=== PATIENT | female | born 1970 | race Caucasian/White ===

== ENCOUNTER 2023-11-18 10:03 | Observation (INO) | payer OTHER, SELFPAY ==
[2023-11-18] VITALS (7 sets, daily range): BP systolic 128–178; BP diastolic 62–75; PULSE 76–82; RESP 14–18; TEMP 36.4–36.8; O2SAT 96–100; BMI 46.0
--- NOTE | ~2023-11-18 | MR_ITS ---
EXAMINATION: MR brain/brain stem wo/w con DATE: 11/19/2023 13:55 INDICATION: Stroke TECHNIQUE: Magnetic resonance imaging (MRI) of the brain and brainstem was performed without and with 20 mL Multihance intravenous contrast. Sequences included sagittal and axial T1-weighted SE, axial d iffusion-weighted FS SE, axial 3D SWAN, axial T2-weighted FLAIR, and axial T2-weighted FSE. Postcontr ast axial and coronal T1-weighted SE was obtained. Apparent diffusion coefficient (ADC) maps were cre ated. COMPARISON: None. FINDINGS: There are no areas of restricted diffusion to suggest acute infarction. No intracranial hemorrhage or abnormal intracranial mass lesion. There are scattered areas of nonspecific increased T2-weighted si gnal intensity in the cerebral white matter, predominantly involving the deep, periventricular and po ntine white matter. There are no intraparenchymal signal abnormalities seen on the other pulse sequen connie. The ventricles are symmetric and normal in size. There are no abnormal extra-axial fluid collect ions. Flow voids are seen in the cerebral arteries on the T2-weighted sequences consistent with their expected patency. Visualized orbits and soft tissues are unremarkable. There are no areas of abnorma l enhancement on the post contrast images. IMPRESSION: 1. No acute intracranial process. 2. Mild scattered calcific cerebral and pontine white matter T2 hyperintensity which is within normal limits for age and likely sequela of chronic small vessel ischemic disease. Reviewed, dictated and finalized at location A. IMPRESSION: 1. No acute intracranial process. 2. Mild scattered calcific cerebral and pontine white matter T2 hyperintensity which is within normal limits for age and likely sequela of chronic small vesse l ischemic disease.
--- NOTE | ~2023-11-18 | CT_ITS ---
EXAMINATION: CTA BRAIN/CAROTID DATE: 11/18/2023 11:31 INDICATION: Stroke with left-sided deficits including weakness to the left arm and leg TECHNIQUE: Computed tomographic angiography (CTA) of the head and neck was performed with 100 mL Omni paque-350 intravenous contrast. Multiplanar reconstructions and maximum intensity projection 3D-recon structions of the carotid arteries and of the intracranial arteries were created by the technologist on a separate workstation. Precontrast CT of the head was also obtained. Automated exposure control and iterative reconstruction technique were employed.The dose-length product was 1550.04 mGy-cm. COMPARISON: None. FINDINGS: Carotid arteries: Aortic arch is normal in caliber with no evident plaque or dissection. There is a small amount of ath erosclerotic plaque with 0% stenosis of the right carotid bulb relative to normal distal artery lumen diameter (NASCET criteria). There is 25% stenosis of the left carotid bulb relative to normal distal artery lumen diameter. Mild cervical spondylosis with C5-C6 anterior spinal fusion with interbody mary jane ne graft cage and anterior plate and screw fixation. Cervical soft tissues are unremarkable. Visualiz ed upper lungs are clear. Head: No acute intracranial hemorrhage, acute infarction or abnormal extra axial fluid collection. There ar e small old lacunar infarcts at the bilateral basal ganglia. There is mild scattered white matter hyp oattenuation consistent with chronic small vessel ischemic disease. Ventricles are normal and symmet lance. No mass/mass effect. No abnormally enhancing brain lesions on postcontrast imaging. The orbits, paranasal sinuses and mastoid air cells are normal. Intracranial arteries . Arteries are codominant. There is small amount nonhemodynamically significant atherosclerotic plaqu e at the bilateral intracranial portions of the vertebral arteries as well as at the bilateral caroti d siphons. There is no hemodynamically significant stenosis in the vertebral, basilar and internal ca rotid arteries. Both A1 and P1 segments are patent. Interpreting anterior communicating and left post erior communicating arteries. There are no aneurysms identified. Cerebral arterial arborization appe ars symmetric. IMPRESSION: 1. Small amount of atherosclerotic plaque with 0% stenosis of the right carotid bulb relative to norm al distal artery lumen diameter (NASCET criteria). 2. 25% stenosis of the left carotid bulb relative to normal distal artery lumen diameter. 3. Unremarkable cerebral CT angiogram with no hemodynamically significant stenosis, aneurysm or throm bosis. 4. Old lacunar infarcts at the bilateral thalami. No acute intracranial process. 5. Mild scattered white matter hypoattenuation consistent with chronic small vessel ischemic disease. Reviewed, dictated and finalized at location A. IMPRESSION: 1. Small amount of atherosclerotic plaque with 0% stenosis of the right carotid bulb relative to normal distal artery lumen diameter (NASCET criteria). 2. 25% stenosis of the left carotid bulb relative to normal distal artery lumen diameter. 3. Unremarkable cerebral CT angiogram with no hemodynamically significant steno sis, aneurysm or thrombosis. 4. Old lacunar infarcts at the bilateral thalami. No acute intracranial process . 5. Mild scattered white matter hypoattenuation consistent with chronic small ve ssel ischemic disease.
--- NOTE | ~2023-11-18 | XR_ITS ---
EXAMINATION: XR chest 2V DATE: 11/18/2023 11:37 INDICATION: Stroke presenting with left-sided deficits and weakness to the left arm and leg TECHNIQUE: PA and lateral views of the chest were obtained. COMPARISON: None FINDINGS: The lungs are clear with no focal airspace opacities, pulmonary edema, pleural effusion or pneumothor ax. The cardiomediastinal silhouette is normal. Instrumented anterior spinal fusion at the lower cerv ical spine. IMPRESSION: 1. No acute cardiopulmonary disease. Reviewed, dictated and finalized at location A.
--- NOTE | 2023-11-18 10:37 | ED.NEUROSD ---
HPI - Neuro Symptoms/Deficit General Chief Complaint: Neuro Symptoms/Deficit Stated Complaint: left side numb Time Seen by Provider: 11/18/23 10:06 History of Present Illness HPI Narrative: Patient is a 52-year-old female who presents ER with left-sided weakness since 11/16/2023. Sudden onset. No improvement since then. Has difficulty walking. Feels lightheaded. Feels tingling in arms but no actual anesthesia. reports she sees a cloth colorer with [employer] Hu[employer] who did a coronary catheterization in found a 30% blockage but nothing intervenable. He also had her wear a Holter monitor for 25 days in no she is not being diagnosed with AFib she was told she could potentially have it. She is not clear on the results of this Holter monitor. She went to [facility] this morning to be evaluated was told that she was dehydrated but she reports that she did not actually tell him about the left-sided weakness only that she was lightheaded in her arm hurts. She then went to her chiropractor who referred her here. Patient does take clopidogrel. She does report that she removed had a stroke in the past. A couple years ago she had some numbness in her left face. She does not have much more information about that event. Related Data Home Medications Medication Instructions Recorded Confirmed B6 35 mg-levomefolate 3 1 cap PO Q12H 11/18/23 11/18/23 mg-mecobalam 2 [id number] capsule del rel (EB-N6 DR) acetaminophen 500 mg capsule 1,000 mg PO BID 11/18/23 11/18/23 atorvastatin 40 mg tablet 40 mg PO DAILY 11/18/23 11/18/23 bupropion HCl 150 mg 24 hr tablet, 150 mg PO DAILY 11/18/23 11/18/23 extended release cetirizine 10 mg tablet 10 mg PO DAILY 11/18/23 11/18/23 clopidogrel 75 mg tablet 75 mg PO DAILY 11/18/23 11/18/23 docusate sodium 100 mg capsule 100 mg PO DAILY 11/18/23 11/18/23 (Colace) dulaglutide 3 mg/0.5 mL 3 mg subcut WEEKLY 11/18/23 11/18/23 subcutaneous [facility] ([facility] famotidine 40 mg tablet 40 mg PO BID 11/18/23 11/18/23 furosemide 40 mg tablet 40 mg PO DAILY 11/18/23 11/18/23 glipizide 5 mg tablet 5 mg PO BID 11/18/23 11/18/23 [id number]-cos C-Mn 500 1 cap PO DAILY 11/18/23 11/18/23 mg-400 mg capsule (Glucosamine Chondroitin Maximum Strength) lisinopril 5 mg tablet 5 mg PO DAILY 11/18/23 11/18/23 magnesium 500 mg tablet 500 mg PO DAILY 11/18/23 11/18/23 metformin 1,000 mg tablet 2,000 mg PO DAILY 11/18/23 11/18/23 metoprolol succinate 25 mg 0.5 mg PO DAILY 11/18/23 11/18/23 tablet,extended release 24 hr montelukast 10 mg tablet 10 mg PO DAILY PRN Chest Pain 11/18/23 11/18/23 nitroglycerin 0.4 mg sublingual 0.4 mg sublingual Q5-15M PRN Chest 11/18/23 11/18/23 tablet Pain simethicone 80 mg chewable tablet 80 mg PO DAILY 11/18/23 11/18/23 Allergies Allergy/AdvReac Type Severity Reaction Status Date / Time No Known Allergies Allergy Verified 11/18/23 10:18 Review of Systems Review of Systems: All systems reviewed & are unremarkable except as noted in HPI and below Constitutional: Constitutional: Reports no additional constitutional complaints ENT: Reports system reviewed and no additional complaints, except as documented Cardiovascular: Cardiovascular: Reports no additional cardiovascular complaints Respiratory: Respiratory: Reports no additional respiratory complaints Gastrointestinal: Gastrointestinal: Reports no additional gastrointestinal complaints Musculoskeletal: Musculoskeletal: Reports no additional musculoskeletal complaints Neurologic: Reports dizziness, Denies syncope, Denies headache(s), Reports focal weakness and Reports numbness PMFSH Past Medical History Medical History (Updated 11/18/23 @ 18:45 by Geronimo Jo MD) Cerebrovascular accident Hyperlipidemia Hypertension Type 2 diabetes mellitus Social History Social History (Updated 11/18/23 @ 16:03 by Abby Bansal PA-C) Social History: Surrogate medical decision
[2023-11-18 11:21] LABS: Basophils Absolute Auto 0.1 K/mm3 (0.0-0.1); Basophils Percent Auto 0.8 % (0.2-1.2); Eosinophils Absolute Auto 0.1 K/mm3 (0-0.3); Eosinophils Percent Auto 1.4 % (0-4.4); Hematocrit 36.5 % (37.0-47.0); Hemoglobin 11.5 g/dL (12.0-15.0); Immature Granulocyte Absolute 0.03 K/mm3 (0.00-0.031); Immature Granulocyte Percent A 0.5 % (0-0.5); Lymphocytes Percent Auto 28.4 % (18.3-44.2); Mean Corpuscular HGB Conc 31.5 g/dl (32-36); Mean Corpuscular Hemoglobin 28.1 pg (26-34); Mean Corpuscular Volume 89.2 fl (80-100); Mean Platelet Volume 10.4 fl (7.4-10.4); Monocytes Absolute Auto 0.3 K/mm3 (0.1-0.6); Monocytes Percent Auto 3.9 % (2.6-8.5); Neutrophils Absolute Auto 4.1 K/mm3 (1.3-6.7); Platelet Count Result 303 k/mm3 (150-375); Red Blood Count 4.09 M/mm3 (4.2-5.4); Red Cell Distribution Width 12.9 % (11.5-14.5); White Blood Count 6.3 K/mm3 (4.5-10.0)
[2023-11-18 11:22] LABS: Appearance Urine Clear (Clear); Bilirubin Urine Negative (Negative); Blood Urine Negative (Negative); Color Urine Yellow (Yellow); Glucose Urine UA 3+ mg/dL (Negative); Ketones Urine Negative (Negative); Leukocyte Esterase Ur Negative LEU/UL (Negative); Nitrate Urine Negative (Negative); Protein Urine Negative (Negative); Specific Grav Ur 1.024 (1.001-1.035); Urobilinogen Urine 0.2 mg/dL (<2.0); pH Urine 5.5 (5.0-9.0)
[2023-11-18 11:23] LABS: Estimated CRCL calculation 108 ml/min; Estimated Glomerular Filt Rate > 60
[2023-11-18 11:26] LABS: Partial Thromboplastin Time 25.9 Seconds (22.3-36.8)
[2023-11-18 11:29] LABS: Alanine Aminotransferase 15 U/L (6-35); Alkaline Phosphatase 109 U/L (38-126); Anion Gap 10 mmol/L (4-12); Aspartate Amino Transferase 20 U/L (14-36); Bilirubin,Total 0.4 mg/dL (0.2-1.3); Blood Urea Nitrogen 14 mg/dL (7-17); Calcium 8.9 mg/dL (8.4-10.2); Carbon Dioxide 23 mmol/L (22-30); Chloride 106 mmol/L (98-107); Estimated CRCL calculation 123 ml/min; Estimated Glomerular Filt Rate > 60; Glucose 331 mg/dL (65-110); Sodium 139 mmol/L (137-145)
[2023-11-18 11:40] LABS: Troponin I < 0.012 ng/mL (0.000-0.034)
[2023-11-18 11:51] LABS: Add Urine Microscopic? NO
--- NOTE | 2023-11-18 15:10 | ADMGEN ---
This patient, Milagros Gold, was admitted to [facility] Surg Room 305-02. Patient/family oriented to hospital policies and general routines including ID bracelet, bed and alarms, visiting hours, pain management, procedures, bathroom and other care routines, personal items, smoking policy, room service/diet, and visiting hours. Information on how to activate the Rapid Response Team has been discussed. Patient/Family are encouraged to report perceived risks to care and to ask questions if they do not understand what they are told or what they should do.
--- NOTE | 2023-11-18 15:57 | PM.IMHP ---
H&P: HPI History of Present Illness Date/Time: 11/18/23 15:30 Chief Complaint: Left-sided numbness. Narrative: This is a 52-year-old female with history of stroke, hypertension, hyperlipidemia, and type 2 diabetes mellitus who presented to the emergency department via private vehicle for evaluation of left-sided numbness. The patient provides the following history. She endorses left-sided weakness and tingling which started rather abruptly on 11/16/2023. At the outset she was having difficulties walking due to the left leg weakness but that has seemed to improve. She has otherwise been feeling tired with no energy. Earlier this morning she was seen emergency department at [facility] at which time she was told that she was dehydrated however the patient admits that she did not tell them fully about the left-sided weakness that she was having. She then went to see her chiropractor who referred her to the ED after noticing the weakness and mild left facial droop and slurred speech which the patient had not noticed. She denies vertigo, visual changes, difficulties speaking and swallowing, chest pain, palpitations, sensations of racing heart, nausea, vomiting, diarrhea, and dysuria. In the ED: She was afebrile on arrival with stable vital signs. Labs were significant for WBC count 6.3, hemoglobin 11.5, glucose 331, troponin less than 0.012. Urine was positive for 3+ glucose. Chest x-ray was unremarkable. CTA of the head and neck showed old lacunar infarcts at the bilateral ilium I, mild scattered white matter hypoattenuation consistent with chronic small-vessel ischemic disease, small amount of atherosclerotic plaque with 0% stenosis in the right carotid bulb, 25% stenosis of the left carotid bulb, and an unremarkable cerebral CT angiogram. She is being admitted in this setting for close monitoring and neurology consult. Review of Systems Review of Systems: 12 systems were reviewed and are negative except for as per HPI. REPLACED BY [facility] Past Medical History Medical History Cerebrovascular accident Hyperlipidemia Hypertension Type 2 diabetes mellitus Social History Social History (Updated 11/18/23 @ 22:20 by Abby Bansal PA-C) Social History: Surrogate medical decision maker: Geronimo Gold. Code status: Full code. Smoking status: Never smoker Alcohol intake: never Substance use: never Substance use type: does not use Do You Feel Safe in your Home?: Yes Lack of Transportation: No Lack of Food: Never True Current Housing: I Have Housing Concerned About Future Housing: No Difficulty Paying Gas/Electric Bills: No Difficulty Paying for Meds: No Currently Unemployed: No Education: High School Diploma/GED Difficulty w/ Childcare or Family Care: No Spiritual care concerns: No Meds Home Medications and Allergies Home Medications Medication Instructions Recorded Confirmed Type B6 35 mg-levomefolate 3 1 cap PO Q12H 11/18/23 11/18/23 History mg-mecobalam 2 de-DTO-jdpuquu capsule del rel (EB-N6 DR) acetaminophen 500 mg capsule 1,000 mg PO BID 11/18/23 11/18/23 History atorvastatin 40 mg tablet 40 mg PO DAILY 11/18/23 11/18/23 History bupropion HCl 150 mg 24 hr tablet, 150 mg PO DAILY 11/18/23 11/18/23 History extended release cetirizine 10 mg tablet 10 mg PO DAILY 11/18/23 11/18/23 History clopidogrel 75 mg tablet 75 mg PO DAILY 11/18/23 11/18/23 History docusate sodium 100 mg capsule 100 mg PO DAILY 11/18/23 11/18/23 History (Colace) dulaglutide 3 mg/0.5 mL 3 mg subcut WEEKLY 11/18/23 11/18/23 History subcutaneous pen injector ([facility]) famotidine 40 mg tablet 40 mg PO BID 11/18/23 11/18/23 History furosemide 40 mg tablet 40 mg PO DAILY 11/18/23 11/18/23 History glipizide 5 mg tablet 5 mg PO BID 11/18/23 11/18/23 History diuatqomtws-avliyoutu-fsq C-Mn 500 1 cap PO DAILY 11/18/23 11/18/23 History mg-400 mg capsule
[2023-11-18] MEDS: FAMOTIDINE 20 MG TABLET 40 MG PO (17:21)
[2023-11-18] MEDS: glipiZIDE 5 MG TABLET PO (17:21)
[2023-11-18 19:18] LABS: Hemoglobin A1C 6.1 % (<5.7)
[2023-11-18 20:29] LABS: Glucose Point of Care 116 mg/dl (65-105)
[2023-11-18] MEDS: ACETAMINOPHEN 500 MG TABLET 1000 MG PO (21:11)
--- NOTE | 2023-11-18 21:17 | PHAR ---
PT'S HOME MED EB-N6 SUPPLEMENT VERIFIED BY PHARMACY
[2023-11-19] VITALS (9 sets, daily range): BP systolic 128–133; BP diastolic 47–66; PULSE 66–80; RESP 16–18; TEMP 36.4–36.6; O2SAT 99–100
[2023-11-19 06:42] LABS: Anion Gap 4 mmol/L (4-12); Blood Urea Nitrogen 9 mg/dL (7-17); Calcium 8.8 mg/dL (8.4-10.2); Carbon Dioxide 28 mmol/L (22-30); Chloride 109 mmol/L (98-107); Cholesterol 117 mg/dL (0-200); Estimated CRCL calculation 125 ml/min; Estimated Glomerular Filt Rate > 60; Glucose 118 mg/dL (65-110); HDL Direct 43 mg/dL; Potassium 4.1 mmol/L (3.4-5.0); Sodium 141 mmol/L (137-145); Triglycerides 102 mg/dL (<150)
[2023-11-19 06:53] LABS: LDL Cholesterol Direct 62 mg/dL
[2023-11-19 08:00] LABS: Glucose Point of Care 154 mg/dl (65-105)
[2023-11-19] MEDS: glipiZIDE 5 MG TABLET PO ×2 (09:05→17:09)
[2023-11-19] MEDS: ATORVASTATIN 40 MG TABLET PO (09:05)
[2023-11-19] MEDS: buPROPion HCL XL (24 HR) 150 MG TABCR PO (09:05)
[2023-11-19] MEDS: FUROSEMIDE 40 MG TABLET PO (09:05)
[2023-11-19] MEDS: ACETAMINOPHEN 500 MG TABLET 1000 MG PO ×2 (09:05→17:09)
[2023-11-19] MEDS: CLOPIDOGREL BISULFATE 75 MG TABLET PO (09:06)
[2023-11-19] MEDS: FAMOTIDINE 20 MG TABLET 40 MG PO ×2 (09:06→17:09)
[2023-11-19] MEDS: lisinopriL 5 MG TABLET PO (09:06)
[2023-11-19] MEDS: MAGNESIUM 27 MG TABLET (500 MG MAG GLUCONATE) BY MOUTH (09:07)
[2023-11-19] MEDS: METOPROLOL SUCCINATE EXT REL 12.5 MG TABCR PO (09:13)
[2023-11-19] MEDS: PERFLUTREN LIPID MICROSPHERES 1.5 ML VIAL DILUTED TO 10 ML TOTAL VOLUME IV PUSH (09:33)
--- NOTE | 2023-11-19 10:36 | IVDEFINITY ---
Prior to administration of IV Definity the patient was educated on the risks and benefits of the imaging enhancing agent including potential adverse side effects. The patient verbalized understanding. Allergies were verified. No exclusion criteria were identified and at least one of the following inclusion criteria were met: 1) physician request, 2) patient technically difficult to image (per the [place] [employer] Echocardi[employer] guidelines of two or more segments not discernable within the apical view), or 3) questionable left ventricular function. ?
[2023-11-19 11:33] LABS: Glucose Point of Care 212 mg/dl (65-105)
--- NOTE | 2023-11-19 11:51 | PM.IMPN ---
Progress Note: A&P Assessment and Plan (1) Cerebrovascular accident: Code(s): I63.9 - Cerebral infarction, unspecified Status: Acute (2) Type 2 diabetes mellitus with hyperglycemia: Code(s): E11.65 - Type 2 diabetes mellitus with hyperglycemia Status: Acute (3) Hypertension: Code(s): I10 - Essential (primary) hypertension Status: Acute (4) Hyperlipidemia: Code(s): E78.5 - Hyperlipidemia, unspecified Status: Acute Plan This is 52-year-old female with history of stroke, hypertension, hyperlipidemia, and type 2 diabetes mellitus who presented to the emergency department via private vehicle for evaluation of left-sided numbness. The patient provides the following history. She endorses left-sided weakness and tingling which started rather abruptly on 11/16/2023. At the outset she was having difficulties walking due to the left leg weakness but that has seemed to improve. She has otherwise been feeling tired with no energy. Earlier this morning she was seen emergency department at [facility] at which time she was told that she was dehydrated however the patient admits that she did not tell them fully about the left-sided weakness that she was having. She then went to see her chiropractor who referred her to the ED after noticing the weakness and mild left facial droop and slurred speech which the patient had not noticed. She denies vertigo, visual changes, difficulties speaking and swallowing, chest pain, palpitations, sensations of racing heart, nausea, vomiting, diarrhea, and dysuria. In the ED: She was afebrile on arrival with stable vital signs. Labs were significant for WBC count 6.3, hemoglobin 11.5, glucose 331, troponin less than 0.012. Urine was positive for 3+ glucose. Chest x-ray was unremarkable. CTA of the head and neck showed old lacunar infarcts at the bilateral ilium, mild scattered white matter hypoattenuation consistent with chronic small-vessel ischemic disease, small amount of atherosclerotic plaque with 0% stenosis in the right carotid bulb, 25% stenosis of the left carotid bulb, and an unremarkable cerebral CT angiogram. She is being admitted in this setting for close monitoring and neurology consult. Due to late presentation she is not a candidate for tPA and no significant findings were noted on CTA. Risk factors for stroke include hypertension, hyperlipidemia, obesity, and diabetes. She reports that her diabetes is typically well controlled. A1c at 6.1. Brain MRI and echocardiogram with bubble study has been ordered. Monitor on telemetry to rule out cardiac dysrhythmia; she reports wearing an event monitor for several weeks as some point in time however she is not clear on the results. May be prudent to send her home on another event monitor. Continue statin, aspirin, and clopidogrel. Only on clopidogrel at home is. Hold metformin as she received IV contrast. Type 2 diabetes Initiate sliding scale insulin, Accu-Cheks, and hypoglycemic protocol. Echo showed EF of more than 70% grade 1 diastolic mild TR. LDL is 62. DVT prophylaxis Lovenox Subjective Date/time seen: 11/19/23 11:51 Interval history: . No further tingling and numbness in left extremity still some weakness left extremities claustrophobic for MRI Review of Systems Review of Systems: All systems reviewed & are unremarkable except as noted in HPI and below Exam Narrative: General: Well-developed female in the semi-Ambriz position in bed in no distress. HEENT: PERRL, EOMI. Sclera anicteric. Oral mucosa moist. . Neck: Supple. No carotid bruits. Respiratory: Lungs are clear to auscultation bilaterally. Cardiovascular: Regular rate and rhythm with S1-S2. Gastrointestinal: Abdomen is soft, obese, nontender, and nondistended with positive bowel sounds. Skin: Warm and dry. No rash or lesions on limited exam. Extremities: No cyanosis, clubbing, or edema. Radial and pedal pulses intact. Neurological: Alert a
[2023-11-19] MEDS: INSULIN ASPART (*BKC) 100 UNITS/ML SUB-Q (12:33)
[2023-11-19] MEDS: diazePAM (*CRX) 5 MG TABLET PO (13:01)
--- NOTE | 2023-11-19 16:09 | ECHO_ITS ---
Patient Info Name: Milagros Gold Age: 52 years : 1970 Gender: Female Ht: 69 in Wt: 311 lbs BSA: 2.69 m2 HR: 80 bpm BP: 131 / 47 mmHg Heart Rhythm: Sinus Rhythm Technical Quality: Poor Exam Date: 11/19/2023 9:23 AM Exam Location: Echo Lab Patient Status: Inpatient Admit Date: 11/18/2023 Staff Ordering Physician: Abby Bansal PA-C Body Shop Technician: Matilde Butler RDCS Attending Provider: Danial Villarreal MD Referring Physician: Nimisha GERARDO; Exam Type: CA echo dop bubble study w con Study Info Indications - stroke Complete two-dimentional, color flow and Doppler transthoracic echocardiogram is performed with agitated saline and with contrast to opacify the left ventricle and to improve the delineation of the left ventricle endocardial borders. Contrast/Agitated Saline Contrast/Ag. Saline: Definity Amount: 3.00 ml Administered By: Matilde Butler RDCS Existing IV Access: Yes IV Access Condition: patent with no signs of infiltration Contrast/Ag. Saline: Agitated Saline Amount: 20.00 ml Administered By: Mary Vo RN Existing IV Access: Yes IV Access Condition: patent with no signs of infiltration Summary 1. Left ventricular chamber dimension is normal. 2. Left ventricular systolic function is hyperdynamic, estimated at >70%. 3. There is mildly increased left ventricular wall thickness. 4. The left ventricular diastolic function is grade I diastolic dysfunction. 5. Left atrial chamber dimension is mildly enlarged. 6. The mitral valve annulus is severely calcified. 7. The mitral valve has thickened leaflets. 8. There is mild tricuspid valve regurgitation. 9. Intact interatrial septum visualized by agitated saline imaging. Left Ventricle Left ventricular chamber dimension is normal. Left ventricular systolic function is hyperdynamic, estimated at >70%. There is mildly increased left ventricular wall thickness. The left ventricular diastolic function is grade I diastolic dysfunction. Right Ventricle Right ventricular chamber dimension is normal. Right ventricular systolic function is normal. Left Atria Left atrial chamber dimension is mildly enlarged. Right Atria Right atrial chamber dimension is normal. Atrial Septum Intact interatrial septum visualized by agitated saline imaging. Aortic Valve The aortic valve is trileaflet. There is mild aortic valve sclerosis. There is no aortic valve stenosis. There is trace aortic valve regurgitation. Pulmonic Valve The pulmonic valve is normal. There is no pulmonic valve stenosis. There is trace pulmonic regurgitation. Mitral Valve The mitral valve has thickened leaflets. There is no mitral valve stenosis. There is trace mitral valve regurgitation. The mitral valve annulus is severely calcified. Tricuspid Valve The tricuspid valve leaflets are normal. There is no significant tricuspid valve stenosis. There is mild tricuspid valve regurgitation. No pulmonary hypertension, estimated pulmonary arterial systolic pressure is 31 mmHg. Pericardium/Pleural The pericardium appears normal. There is no pericardial effusion. Inferior Vena Cava Normal inferior vena cava with >50% collapse upon inspiration consistent with normal right atrial pressure, 10 mmHg. Aorta The aortic root size at the sinus of Valsalva is normal. Left Ventricular Outflow Tract Name
[2023-11-19 16:32] LABS: Glucose Point of Care 133 mg/dl (65-105)
--- NOTE | 2023-11-19 17:05 | WPDNEURCNPN ---
Assessment and Plan Assessment and plan (1) Cerebrovascular accident: Code(s): I63.9 - Cerebral infarction, unspecified Status: Acute (2) Type 2 diabetes mellitus with hyperglycemia: Code(s): E11.65 - Type 2 diabetes mellitus with hyperglycemia Status: Acute (3) Left-sided weakness: Code(s): R53.1 - Weakness Status: Acute (4) Hyperlipidemia: Code(s): E78.5 - Hyperlipidemia, unspecified Status: Acute (5) Hypertension: Code(s): I10 - Essential (primary) hypertension Status: Acute Plan New onset stroke with distal weakness in the left upper and lower limb in a patient history of diabetes mellitus and hypertension exogenous obesity. Her LDL was 62. CT angiogram did not show any abnormality. MRI of the brain believe shows an infarct in the right pontine area. I talked to the radiologist who agrees and will make a note in the findings. The patient required physical therapy and occupational therapy. Speech and swallowing seems to be unaffected at this time. Management of the risk factors and use of antiplatelets and statins are recommended. She is already on aspirin Plavix and atorvastatin 40 mg a day and these should be continued. She should be screened for possible underlying sleep apnea syndrome. If she agrees to see should be referred to the [facility] in the near future. Consult date: 11/19/23 HPI: Milagros Gold is a 52 year old female history of onset of numbness in the left side of the body on 11/16/1999 24. She presented 2 days later over here. Apparently she was seen at another hospital emergency room where the symptoms were not presented in the entirety. At any rate the patient continues to have some difficulty the left side of the body. She has history of diabetes mellitus for long time. She has now been found to have a old thalamic infarct on the CT scan of the brain CT angiogram of the head and neck was performed which did not show any significant abnormalities. Patient is right-handed. She does not smoke or drink any alcohol. She denies any symptoms on the right side of the body. She is however concerned about pain from neuropathy associated with diabetes mellitus. She states that she is trying to lose weight and in fact has lost weight. Her diabetes and blood pressure has been under control. Review of Systems Review of Systems: All systems reviewed & are unremarkable except as noted in HPI and below PMFSH Past Medical History Medical History Cerebrovascular accident Hyperlipidemia Hypertension Type 2 diabetes mellitus Social History Social History Social History: Surrogate medical decision maker: Geronimo Gold. Code status: Full code. Smoking status: Never smoker Alcohol intake: never Substance use: never Substance use type: does not use Do You Feel Safe in your Home?: Yes Lack of Transportation: No Lack of Food: Never True Current Housing: I Have Housing Concerned About Future Housing: No Difficulty Paying Gas/Electric Bills: No Difficulty Paying for Meds: No Currently Unemployed: No Education: High School Diploma/GED Difficulty w/ Childcare or Family Care: No Spiritual care concerns: No Meds Home Medications and Allergies Home Medications Medication Instructions Recorded Confirmed Type B6 35 mg-levomefolate 3 1 cap PO Q12H 11/18/23 11/18/23 History mg-mecobalam 2 [id number] capsule del rel (EB-N6 DR) acetaminophen 500 mg capsule 1,000 mg PO BID 11/18/23 11/18/23 History atorvastatin 40 mg tablet 40 mg PO DAILY 11/18/23 11/18/23 History bupropion HCl 150 mg 24 hr tablet, 150 mg PO DAILY 11/18/23 11/18/23 History extended release cetirizine 10 mg tablet 10 mg PO DAILY 11/18/23 11/18/23 History clopidogrel 75 mg tablet 75 mg PO DAILY 11/18/23 11/18/23 History
[2023-11-19 20:27] LABS: Glucose Point of Care 119 mg/dl (65-105)
[2023-11-20] VITALS (7 sets, daily range): BP systolic 127–133; BP diastolic 62–68; PULSE 66–75; RESP 16–20; TEMP 36.4; O2SAT 98
[2023-11-20 07:58] LABS: Glucose Point of Care 177 mg/dl (65-105)
[2023-11-20] MEDS: MAGNESIUM 27 MG TABLET (500 MG MAG GLUCONATE) BY MOUTH (09:10)
[2023-11-20] MEDS: glipiZIDE 5 MG TABLET PO (09:10)
[2023-11-20] MEDS: FAMOTIDINE 20 MG TABLET 40 MG PO (09:10)
[2023-11-20] MEDS: buPROPion HCL XL (24 HR) 150 MG TABCR PO (09:10)
[2023-11-20] MEDS: METOPROLOL SUCCINATE EXT REL 12.5 MG TABCR PO (09:10)
[2023-11-20] MEDS: DOCUSATE SODIUM 100 MG CAPSULE PO (09:11)
[2023-11-20] MEDS: FUROSEMIDE 40 MG TABLET PO (09:11)
[2023-11-20] MEDS: ATORVASTATIN 40 MG TABLET PO (09:11)
[2023-11-20] MEDS: lisinopriL 5 MG TABLET PO (09:11)
[2023-11-20] MEDS: CLOPIDOGREL BISULFATE 75 MG TABLET PO (09:12)
[2023-11-20] MEDS: ASPIRIN 81 MG ENTERIC TABLET PO (09:12)
[2023-11-20] MEDS: LORATADINE 10 MG TABLET PO (09:12)
[2023-11-20] MEDS: ACETAMINOPHEN 500 MG TABLET 1000 MG PO (09:12)
[2023-11-20] MEDS: ENOXAPARIN 40 MG/0.4 ML SYRINGE SUB-Q (09:13)
[2023-11-20 11:23] LABS: Glucose Point of Care 185 mg/dl (65-105)
--- NOTE | 2023-11-20 12:10 | PM.DS ---
DS: Admitting Diagnosis Discharge Date 11/20/2023 Admitting Diagnosis Left-sided weakness/paresthesia DS: Discharge Diagnosis Discharge Diagnosis (1) Cerebrovascular accident: Code(s): I63.9 - Cerebral infarction, unspecified Status: Acute (2) Type 2 diabetes mellitus with hyperglycemia: Code(s): E11.65 - Type 2 diabetes mellitus with hyperglycemia Status: Acute (3) Hypertension: Code(s): I10 - Essential (primary) hypertension Status: Acute (4) Hyperlipidemia: Code(s): E78.5 - Hyperlipidemia, unspecified Status: Acute DS: Summary Hospital Course Hospital Course: This is 52-year-old female with history of stroke, hypertension, hyperlipidemia, and type 2 diabetes mellitus who presented to the emergency department via private vehicle for evaluation of left-sided numbness. The patient provides the following history. She endorses left-sided weakness and tingling which started rather abruptly on 11/16/2023. At the outset she was having difficulties walking due to the left leg weakness but that has seemed to improve. She has otherwise been feeling tired with no energy. Earlier this morning she was seen emergency department at [facility] at which time she was told that she was dehydrated however the patient admits that she did not tell them fully about the left-sided weakness that she was having. She then went to see her chiropractor who referred her to the ED after noticing the weakness and mild left facial droop and slurred speech which the patient had not noticed. She denies vertigo, visual changes, difficulties speaking and swallowing, chest pain, palpitations, sensations of racing heart, nausea, vomiting, diarrhea, and dysuria. In the ED: She was afebrile on arrival with stable vital signs. Labs were significant for WBC count 6.3, hemoglobin 11.5, glucose 331, troponin less than 0.012. Urine was positive for 3+ glucose. Chest x-ray was unremarkable. CTA of the head and neck showed old lacunar infarcts at the bilateral ilium, mild scattered white matter hypoattenuation consistent with chronic small-vessel ischemic disease, small amount of atherosclerotic plaque with 0% stenosis in the right carotid bulb, 25% stenosis of the left carotid bulb, and an unremarkable cerebral CT angiogram. She is being admitted in this setting for close monitoring and neurology consult. Due to late presentation she is not a candidate for tPA and no significant findings were noted on CTA. Risk factors for stroke include hypertension, hyperlipidemia, obesity, and diabetes. She reports that her diabetes is typically well controlled. A1c at 6.1. Brain MRI and echocardiogram with bubble study has been ordered. Brain MRI revealed a region of acute stroke in right side of dipti. Telemetry revealed sinus rhythm with no arrhythmia or AFib. She recently had event monitor done which did not reveal evidence of AFib as well. To continue on aspirin and Plavix at discharge along with statin. LDL was 62. Diabetes management as per PCP. Only on clopidogrel at home prior to this. Hold metformin as she received IV contrast. Type 2 diabetes Initiate sliding scale insulin, Accu-Cheks, and hypoglycemic protocol. Echo showed EF of more than 70% grade 1 diastolic mild TR. LDL is 62. DVT prophylaxis Lovenox Time Spent with Patient Time attestation: Total time spent providing and/or coordinating discharge services: 35 minutes Exam Narrative: General: Well-developed female in the semi-Ambriz position in bed in no distress. HEENT: PERRL, EOMI. Sclera anicteric. Oral mucosa moist. . Neck: Supple. No carotid bruits. Respiratory: Lungs are clear to auscultation bilaterally. Cardiovascular: Regular rate and rhythm with S1-S2. Gastrointestinal: Abdomen is soft, obese, nontender, and nondistended with positive bowel sounds. Skin: Warm and dry. No rash or lesions on limited exam. Extremities: No cyanosis, clubbing, or edema. Radial
== END 2023-11-20 16:00 | disposition home or self-care (01) ==
LOC: ANHED 10:45 → ANH3MEDSUR 11-19 13:45
PROVIDERS: Physician Assistant; Admitting Provider Internal Medicine; Emergency Provider Emergency Medicine; PCP Family Medicine; Visit Provider Internal Medicine
DX: I63.9 Cerebral infarction, unspecified (principal); G81.94 Hemiplegia, unspecified affecting left nondominant side; E78.5 Hyperlipidemia, unspecified; I10 Essential (primary) hypertension; E11.65 Type 2 diabetes mellitus with hyperglycemia
CPT/HCPCS: 36415; 70496; 70498; 70553; 71046; 80048; 80053; 80061; 81003; 82948; 83036; 83735; 84484; 85025; 85610; 85730; 96372; 96375; 97161; 97165; 99285; A9270; A9577; C8929; G0378; J1650; J1815; Q9957; Q9967